=== PATIENT | female | born 1995 | race Caucasian/White ===

== ENCOUNTER 2016-10-27 19:11 | Emergency (ER) | payer SELFPAY ==
[2016-10-27 19:24] VITALS: BP 120/68; PULSE 75; RESP 16; TEMP 100.1; O2SAT 99
--- NOTE | 2016-10-27 20:32 | ED PDOC ---
HPI: Female Pain History Per: Patient, Family Onset/Duration Of Symptoms: Worse Since (2 weeks ago), Other (has been having urinary problems for 3+ years) Current Symptoms Are (Timing): Still Present Severity: Moderate Quality Of Discomfort: Dull, Burning Associated Symptoms: Back Pain, Urinary Symptoms. denies: Fever, Chills, Nausea , Vomiting Alleviating Factors: None Additional Complaint(s): Pt is 21 yo F with pmh chronic burning upon urination. States she has always had problems with urinating and she has had a burning sensation when she urinates daily, accompanied by frequency and urgency. States she goes to the bathroom 15x a day. Pt got antibiotics when she went home to [facility] last year, states that she does not know the name and at the time they did not help. She has tried using "feminine soap" to help with the problem, but it did not help. In addition pt complains of bilateral waxing/waning flank pain, present for the past 2-3 yrs as well. Denies ever being sexually active, does not have concern for STI. Denies other complaints. Has no PMD. Abnormal Vaginal Bleeding: No Last Menstral Period: 09/25/16 : 0 <Sudha Hahn - Last Filed: 10/27/16 20:59> <Caitlyn May - Last Filed: 10/27/16 21:11> Time Seen by Provider: 10/27/16 19:40 Chief Complaint (Nursing): Female Genitourinary Supervising Attending Note - Supervising Attending Note The Documented history was done by the: Physician It Director The documented physical exam was done by the: Physician It Director The documented procedures were done by the: Physician It Director - Attestation: I have personally seen and examined this patient.: Yes I have fully participated in the care of the patient.: Yes I have reviewed all pertinent clinical information, including history, physical exam and plan: Yes <Caitlyn May - Last Filed: 10/27/16 21:11> Past Medical History Vital Signs: Last Vital Signs Temp 100.1 F H 10/27/16 19:21 Pulse 75 10/27/16 19:21 Resp 16 10/27/16 19:21 BP 120/68 10/27/16 19:21 Pulse Ox 99 10/27/16 19:21 - Medical History PMH: No Chronic Diseases - Surgical History Surgical History: No Surg Hx - Family History Family History: States: No Known Family Hx - Social History Current smoker - smoking cessation education provided: No (never smoker) Alcohol: None Drugs: Denies <Sudha Hahn - Last Filed: 10/27/16 20:59> Vital Signs: Last Vital Signs Temp 100.1 F H 10/27/16 19:21 Pulse 75 10/27/16 19:21 Resp 16 10/27/16 19:21 BP 120/68 10/27/16 19:21 Pulse Ox 99 10/27/16 20:59 <Caitlyn May Shaheed - Last Filed: 10/27/16 21:11> - Home Medications Home Medications: Ambulatory Orders Medication Instructions Recorded Sulfamethoxazole/Trimethoprim 1 tab PO BID #14 tab 10/27/16 [Bactrim DS 800 mg-160 mg] - Allergies Allergies/Adverse Reactions: Allergies Allergy/AdvReac Type Severity Reaction Status Date / Time No Known Allergies Allergy Verified 10/27/16 19:24 Review of Systems Genitourinary Female: Positive for: Dysuria, Frequency <Sudha Hahn - Last Filed: 10/27/16 20:59> Physical Exam - Reviewed Vital Signs Reviewed: Yes - Physical Exam Appears: Positive for: Well, No Acute Distress Skin: Positive for: Normal Color, Warm, Dry Eye Exam: Positive for: Normal appearance, EOMI, PERRL ENT: Positive for: Normal ENT Inspection. Negative for: Pharyngeal Erythema, Tonsillar Exudate Neck: Positive for: Normal, Painless ROM, Supple Cardiovascular/Chest: Positive for: Regular Rate, Rhythm. Negative for: Murmur Respiratory: Positive for: Normal Breath Sounds. Negative for: Accessory Muscle Use, Wheezing, Respiratory Distress Gastrointestinal/Abdominal: Positive for: Normal Exam, Bowel Sounds, Soft. Negative for: Tenderness, Mass, Distended, Rebound Back: Positive for: Normal Inspection. Negative for: L CVA Tenderness, R CVA Tenderness Extremity: Positive for: Normal ROM. 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 Urine preg negative Urine dipstick negative Urine C&S sent Pt appears to have chronic problem; spoke with patient regarding how to obtain [facility] care, and referred pt to [facility] to establish medical care for further evaluation on outpatient basis. <Sudha Hahn - Last Filed: 10/27/16 20:59> Disposition - Patient ED Disposition Is Patient to be Admitted: No - Disposition Disposition: Routine/Home Disposition Time: 20:49 <Sudha Hahn - Last Filed: 10/27/16 20:59> <Caitlyn May - Last Filed: 10/27/16 21:11> - Clinical Impression Clinical Impression: Dysuria - Disposition Condition: STABLE Additional Instructions: Please go to [facility] Office on 1st floor on Sunday. Please call to make an appointment at the [facility]. Prescriptions: Sulfamethoxazole/Trimethoprim [Bactrim DS 800 mg-160 mg] 1 tab PO BID #14 tab Instructions: Dysuria (ED) Forms: [email or web address] ([email or web address])
== END 2016-10-27 21:16 | disposition home or self-care (01) ==
LOC: H.ER 19:11
DX: R30.0 Dysuria (principal); M54.9 Dorsalgia, unspecified